=== PATIENT | male | born 1970 | race Caucasian/White ===

== ENCOUNTER 2019-08-12 17:11 | Outpatient (CLI) | payer MEDICAID | END 2019-08-12 17:12 | disposition home or self-care (01) | LOC: LAB.S 17:11 | PROVIDERS: ATTEND Naturopath | DX: Z20.828 Contact with and (suspected) exposure to other viral communicable diseases (principal) | CPT/HCPCS: 81599 ==

== ENCOUNTER 2023-09-21 07:00 | Outpatient (CLI) | payer MEDICAID ==
--- NOTE | 2023-09-22 14:03 | XRAY Report ---
PROCEDURE: Ribs w/PA Chest 3+V LT INDICATIONS: LEFT FRONT CHEST CONTUSION TECHNIQUE: 4 views of the ribs were acquired, along with a single view chest. COMPARISON: None. FINDINGS: Surgical changes and devices: None. Bones and chest wall: Possible nondisplaced fracture at the anterior left eighth rib seen on the sin gle view. Lungs and pleura: No dense consolidation or pleural effusion Mediastinum: Normal heart size IMPRESSION: There is a possible nondisplaced fracture at the anterior left eighth rib. No displaced injury identi fied. If there is high concern for occult injury, consider repeat radiography or cross-sectional imaging. Reviewed by: Parminder Quiñones MD on 09/22/2023 2:02 PM PDT Approved by: Parminder Quiñones MD on 09/22/2023 2:02 PM PDT Station ID: [id number]
== END 2023-09-21 23:59 | disposition home or self-care (01) ==
LOC: DI.S 07:00
PROVIDERS: ATTEND Emergency Medicine
DX: S20.212A Contusion of left front wall of thorax, initial encounter (principal)